=== PATIENT | female | born 2000 | race Caucasian/White ===

== ENCOUNTER 2023-03-07 16:51 | Emergency (ER) | payer BC ==
--- NOTE | 2023-03-07 16:56 | ERPHSYRPT ---
- History of Present Illness Time Seen by Provider: 03/07/23 16:56 Historian: patient, family Physician History: This is a 23-year-old white female patient who presents with dysuria and low pelvic pressure with an episode of yellowish vaginal discharge within the last 2 days. Patient has not had a fever. She has had no bloody discharge. Patient is sexually active but she has no known recent partners with STDs. She also complains of some vaginal itching. Patient denies flank pain. Timing/Duration: day(s) (2) Activities at Onset: none Quality: pressure, other (Itching) Abdominal Pain Onset Location: other (Pelvic) Pain Radiation: no radiation Severity of Pain-Max: mild Severity of Pain-Current: mild Modifying Factors: Improves With: nothing Associated Symptoms: denies symptoms Previous symptoms: no prior history, no recent treatment Allergies/Adverse Reactions: No Known Drug Allergies Allergy (Unverified 03/07/23 16:59) Travel Risk - International Travel Have you traveled outside of the country in past 3 weeks: No - Coronavirus Screening Are you exhibiting any of the following symptoms?: No Close contact with a COVID-19 positive Pt in past 14-21 Days: No - Review of Systems Constitutional: No Symptoms Eyes: No Symptoms Ears, Nose, & Throat: No Symptoms Respiratory: No Symptoms Cardiac: No Symptoms Abdominal/Gastrointestinal: No Symptoms Genitourinary Symptoms: Dysuria, Vaginal Discharge (Yellowish x1 during the last 2 days), Vaginal Itching Musculoskeletal: No Symptoms Skin: No Symptoms Neurological: No Symptoms Psychological: No Symptoms Endocrine: No Symptoms Hematologic/Lymphatic: No Symptoms Immunological/Allergic: No Symptoms All Other Systems: Reviewed and Negative - Past Medical History Pertinent Past Medical History: Yes - Past Surgical History Past Surgical History: Yes - Nursing Vital Signs Nursing Vital Signs: Initial Vital Signs Temperature 97.9 F 03/07/23 17:00 Pulse Rate 58 L 03/07/23 17:00 Blood Pressure 125/75 03/07/23 17:00 O2 Sat by Pulse Oximetry 100 03/07/23 17:00 Pain Scale Pain Intensity 0 - Physical Exam General Appearance: no apparent distress, alert, anxiety, thin Eye Exam: PERRL/EOMI, eyes nml inspection Ears, Nose, Throat Exam: normal ENT inspection, moist mucous membranes Neck Exam: normal inspection, non-tender, supple, full range of motion Respiratory Exam: normal breath sounds, lungs clear, airway intact, No chest tenderness, No respiratory distress Cardiovascular Exam: regular rate/rhythm, normal heart sounds, normal peripheral pulses Gastrointestinal/Abdomen Exam: soft, normal bowel sounds, No tenderness Pelvic Exam: not done Rectal Exam: not done Back Exam: normal inspection, normal range of motion, No CVA tenderness, No vertebral tenderness Extremity Exam: normal inspection, normal range of motion, pelvis stable Neurologic Exam: alert, oriented x 3, cooperative, tobacco educator II-XII nml as tested, normal mood/affect, nml cerebellar function, nml station & gait, sensation nml Skin Exam: normal color, warm, dry Lymphatic Exam: No adenopathy SpO2 Interpretation: normal O2 Delivery: Room Air - Course Nursing assessment & vital signs reviewed: Yes Ordered Tests: Active Orders 24 hr Category Date Time Status CULTURE,URINE Stat Lab 03/07/23 16:57 Received HCG QUALITATIVE, URINE Stat Lab 03/07/23 16:57 Completed Medication Summary Discontinued Medications Generic Name Dose Route Start Last Admin Trade Name Sharlene PRN Reason Stop Dose Admin Ceftriaxone Sodium 1,000 mg 03/07/23 17:44 03/07/23 17:52 Ceftriaxone Sodium 1000 Mg Inj Vial IM 03/07/23 17:45 1,000 mg STAT ONE Administration Ceftriaxone Sodium Confirm 03/07/23 17:50 Ceftriaxone Sodium 1000 Mg Inj Vial Administered 03/07/23 17:51 Dose 1,000 mg .ROUTE .STK-MED ONE Lidocaine HCl Confirm 03/07/23 17:51 Lidocaine Hcl 1% 20 Ml Mdv 20 Ml Ml Administered 03/07/23 17:52 Dose 3 ml .ROUTE .STK-MED ONE Phenazopyridine HCl 200 mg 03/07/23 17:45 03/07/23 17:52 Phenazopyridine Hcl 200 Mg Tablet PO 03/07/23 17:46 200 mg STAT ONE Administration Phenazopyridine HCl Confirm 03/07/23 17:50 Phenazopyridine Hcl 200 Mg Tablet Administered 03/07/23 17:51 Dose 200 mg .ROUTE .STK-MED ONE Lab/Rad Data: Laboratory Results 03/07/23 03/07/23 03/07/23 Range/Units 16:57 16:57 16:57 Urine Color YELLOW (YELLOW) Urine Appearance CLEAR (CLEAR) Urine pH 7.0 (5-6) Ur Specific [place] 1.010 (1.005-1.025) Urine Protein Cancelled POC Urine Protein Conf NEGATIVE (Negative) Urine Glucose (UA) Cancelled Urine Ketones NEGATIVE (NEGATIVE) Urine Blood Cancelled Urine Nitrite NEGATIVE (NEGATIVE) Urine Bilirubin NEGATIVE (NEGATIVE) Urine Urobilinogen 0.2 (0-1) mg/dL Ur Leukocyte Esterase Cancelled Urine Leukocytes MODERATE A (NEGATIVE) U Hyaline Cast (Auto) NONE SEEN (0-2) /LPF Urine RBC TRACE-LYSED A (0-5) [place]/ul Urine Microscopic RBC 0-2 (0-5) /HPF Urine Microscopic WBC 21-50 A (0-5) /HPF Ur Epithelial Cells Moderate A (None Seen) /HPF Urine Bacteria Many A (None Seen) /HPF Urine Culture Reflexed YES (NO) Urine Glucose NEGATIVE (NEGATIVE) mg/dL Urine HCG, Qual NEGATIVE (NEGATIVE) Chlamydia DNA Probe NOT DETECTED (NEGATIVE) N.gonorrhoeae DNA Probe NOT DETECTED (NEGATIVE) - Progress Progress: unchanged Progress Note: 03/07/23 17:29 This patient's medical issue is 1 of low complexity. Level complex in the work- up performed is based on review of the patient's past medical history, review the patient's medication list, review the patient's drug allergy list, history present some physical findings on examination. Patient's work-up includes urinalysis, urine test and urine chlamydia/gonorrhea test Counseled pt/family regarding: lab results, diagnosis, need for follow-up Medical Desision Making - Independent Historian Additional History obtained from: Father - Diagnostic Testing Diagnostic test were ordered, analyzed, and reviewed by me: Yes - Risk of complications The pt has a mod risk of morbidity or mortality based on: Need for prescription drug management - Departure Departure Disposition: Home Clinical Impression: UTI (urinary tract infection) Condition: Stable Critical Care Time: No Referrals: DOCTOR,NO FAMILY [Primary Care Provider] - Follow up/PCP as directed Additional Instructions: Drink plenty of fluids. Use Tylenol and ibuprofen for pain control. Antibiotics as prescribed. Follow-up with your primary care provider on 03/08/2023, to make arrangements for follow-up appointment in the next 3 to 5 days for further evaluation management Prescriptions: Ciprofloxacin [Cipro 500 MG] 500 mg PO BID #14 tablet Phenazopyridine HCl 200 mg [Pyridium 200 mg] 200 mg PO TID #6 tablet
[2023-03-07 17:20] LABS: HCG URINE TEST NEGATIVE (NEGATIVE)
[2023-03-07 17:23] LABS: Appearance CLEAR (CLEAR); Bilirubin NEGATIVE (NEGATIVE); Glucose NEGATIVE (NEGATIVE); Ketones NEGATIVE (NEGATIVE); Nitrite NEGATIVE (NEGATIVE); Protein,Urine Dip NEGATIVE (Negative); RBC TRACE-LYSED Ery/ul (0-5); Urobilinogen 0.2 mg/dL (0-1)
[2023-03-07 17:24] LABS: ADD URINE CULTURE? YES (NO); Bacteria Many /HPF (None Seen); Epithelial Cells Moderate /HPF (None Seen); Hyaline Casts NONE SEEN /LPF (0-2); RBC 0-2 /HPF (0-5); WBC 21-50 /HPF (0-5)
[2023-03-07] MEDS ORDERED: Rocephin 1000 MG INJ IM ONE (17:44)
[2023-03-07] MEDS ORDERED: PYRIDIUM 200 MG PO ONE (17:45)
[2023-03-07] MEDS ORDERED: Rocephin 1000 MG INJ ONE (17:50)
[2023-03-07] MEDS ORDERED: PYRIDIUM 200 MG ONE (17:50)
[2023-03-07] MEDS ORDERED: XYLOCAINE 1% HCL 20 ML MDV ONE (17:51)
[2023-03-07 18:08] VITALS: TEMP 97.8
[2023-03-07 18:54] LABS: CHLAMYDIA DNA NOT DETECTED (NEGATIVE); GC DNA Probe NOT DETECTED (NEGATIVE)
[2023-03-07 19:11] VITALS: BP 122/66; PULSE 54; RESP 18; O2SAT 98
== END 2023-03-07 19:18 | disposition home or self-care (01) ==
LOC: ED 16:51
DX: N39.0 Urinary tract infection, site not specified (principal); R30.0 Dysuria
CPT/HCPCS: 81015; 81025; 87077; 87086; 87186; 87491; 87591; 96372; 99283; J0696; A9270-GY